=== PATIENT | female | born 1985 | race American Indian/Alaskan Native ===

== ENCOUNTER 2016-11-27 16:35 | Emergency (ER) | payer OTHER ==
[2016-11-27 16:52] VITALS: BP 133/82
[2016-11-27 17:31] LABS: Basophils % (Auto) 0.4 % (0.0-1.8); Eosinophils % (Auto) 3.2 % (0.0-4.3); Hematocrit 32.7 % (30.3-42.9); Mean Corpuscular HGB Conc 31 % (30-34); Platelet Count 256 K/mm3 (140-440); Red Blood Count 5.22 M/mm3 (3.65-5.03)
[2016-11-27 17:34] LABS: Anion Gap 18 mmol/L; BUN/Creatinine Ratio 18.57; Blood Urea Nitrogen 13 mg/dL (7-17); Calcium 8.8 mg/dL (8.4-10.2); Carbon Dioxide 24 mmol/L (22-30); Chloride 104.6 mmol/L (98-107); Glucose 83 mg/dL (65-100); Potassium 4.2 mmol/L (3.6-5.0); Sodium 142 mmol/L (137-145)
[2016-11-27 17:37] LABS: Mean Corpuscular Hemoglobin 19 pg (28-32); Mean Corpuscular Volume 63 fl (79-97)
--- NOTE | 2016-11-30 01:40 | ED Elopement Review ---
ED Pt Elopement review - Results review Lab results: Laboratory Tests 11/27/16 11/27/16 11/27/16 17:00 17:00 21:04 WBC 10.0 RBC 5.22 H Hgb 10.0 L Hct 32.7 MCV 63 L MCH 19 L MCHC 31 RDW 22.0 H Plt Count 256 Lymph % (Auto) 13.6 [place] % (Auto) 9.3 H Eos % (Auto) 3.2 Baso % (Auto) 0.4 Lymph # 1.4 [place] # 0.9 H Eos # 0.3 Baso # 0.0 Seg Neutrophils % 73.5 H Seg Neutrophils # 7.3 Sodium 142 Potassium 4.2 Chloride 104.6 Carbon Dioxide 24 Anion Gap 18 BUN 13 Creatinine 0.7 Estimated GFR > 60 BUN/Creatinine Ratio 18.57 Glucose 83 Calcium 8.8 Troponin T < 0.010 < 0.010 - Call Back decision Pt Call Back Decision: No action required
== END 2016-11-27 23:45 | disposition left against medical advice (07) ==
LOC: ED 16:35
DX: R07.9 Chest pain, unspecified (principal); R06.2 Wheezing; R51 Headache; Z53.21 Procedure and treatment not carried out due to patient leaving prior to being seen by health care provider
CPT/HCPCS: 36415; 80048; 84484; 85025; 93005; 93010

== ENCOUNTER 2021-08-09 08:37 | Emergency (ER) | payer SELFPAY ==
[2021-08-09] MEDS ORDERED: KETOROLAC 30 MG/1 ML INJ IM ONE (11:20)
--- NOTE | 2021-08-09 12:15 | XRay Report ---
CERVICAL SPINE 3 VIEWS INDICATION / CLINICAL INFORMATION: back pain. COMPARISON: None available. FINDINGS: VERTEBRAE: No acute fracture. No significant malalignment. DISC SPACES / FACET JOINTS:No significant abnormality. PARASPINAL SOFT TISSUES:No significant abnormality. ADDITIONAL FINDINGS: None. IMPRESSION: No evidence of acute cervical spine fracture. No significant degenerative change. Signer Name: Jeff Gonzalez II, MD Signed: 08/09/2021 12:11 PM Workstation Name: [id number]
--- NOTE | 2021-08-09 12:15 | XRay Report ---
LUMBAR SPINE 3 VIEWS INDICATION / CLINICAL INFORMATION: neck pain. COMPARISON: None available. FINDINGS: VERTEBRAE: No acute fracture. No significant malalignment. DISC SPACES / FACET JOINTS:No significant abnormality. PARASPINAL SOFT TISSUES:No significant abnormality. ADDITIONAL FINDINGS: None. IMPRESSION: 1. No significant degenerative changes, no acute findings. Signer Name: Jeff Gonzalez II, MD Signed: 08/09/2021 12:11 PM Workstation Name: [id number]
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
[2021-08-09 13:01] VITALS: BP 126/82
== END 2021-08-09 13:02 | disposition home or self-care (01) ==
LOC: ED 08:37
DX: M54.2 Cervicalgia (principal); M54.50 Low back pain, unspecified; G43.909 Migraine, unspecified, not intractable, without status migrainosus; J45.909 Unspecified asthma, uncomplicated; Z88.5 Allergy status to narcotic agent; Z88.0 Allergy status to penicillin; Z91.018 Allergy to other foods; Z79.899 Other long term (current) drug therapy; V89.2XXA Person injured in unspecified motor-vehicle accident, traffic, initial encounter; Y93.89 Activity, other specified; Y92.488 Other paved roadways as the place of occurrence of the external cause; Y99.8 Other external cause status
CPT/HCPCS: 72040; 72100; 96372; 99283; J1885